=== PATIENT | male | born 1995 | race Caucasian/White ===

== ENCOUNTER 2016-08-20 19:58 | Outpatient (CLI) | payer OTHER | END 2016-08-20 19:59 | disposition critical access hospital (66) | LOC: EMS 19:58 | PROVIDERS: ATTEND Surgery | DX: M54.9 Dorsalgia, unspecified (principal); S09.90XA Unspecified injury of head, initial encounter; R07.9 Chest pain, unspecified; M25.511 Pain in right shoulder; R41.82 Altered mental status, unspecified; V47.5XXA Car driver injured in collision with fixed or stationary object in traffic accident, initial encounter; Y92.414 Local residential or business street as the place of occurrence of the external cause | CPT/HCPCS: A0425; A0427 ==

== ENCOUNTER 2016-08-20 20:07 | Emergency (ER) | payer OTHER ==
[2016-08-20] MEDS ORDERED: MORPHINE 2 MG/ML SYRINGE ONE (20:16)
[2016-08-20] MEDS ORDERED: MORPHINE 2 MG/ML SYRINGE IVP STA (20:22)
[2016-08-20] MEDS ORDERED: SODIUM CHLORIDE 0.9% 1,000 ML IV STA (20:22)
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
[2016-08-20] MEDS ORDERED: HYDROmorphone 1 MG/ML SYRINGE ONE ×5 (20:36→22:15)
[2016-08-20] MEDS ORDERED: HYDROmorphone 1 MG/ML SYRINGE IVP STA ×5 (20:38→22:15)
[2016-08-20 20:44] LABS: BASOPHILS # (AUTO) 0.1 10^3/uL (0.0-0.1); BASOPHILS % (AUTO) 0.8 %; EOSINOPHILS # (AUTO) 0.2 10^3/uL (0.0-0.7); EOSINOPHILS % (AUTO) 1.5 %; HCT - HEMATOCRIT 46.7 % (42.0-52.0); HGB - HEMOGLOBIN 15.9 g/dL (14.0-18.0); LYMPHOCYTES # (AUTO) 5.8 10^3/uL (1.5-3.5); LYMPHOCYTES % (AUTO) 41.5 %; MEAN CORPUSCULAR HEMOGLOBIN 30.4 pg (27.0-31.0); MEAN CORPUSCULAR VOLUME 89.5 fL (80.0-94.0); MEAN PLATELET VOLUME 9.1 fL (7.4-11.4); MONOCYTES # (AUTO) 0.5 10^3/uL (0.0-1.0); MONOCYTES % (AUTO) 3.8 %; NEUTROPHILS # (AUTO) 7.3 10^3/uL (1.5-6.6); NEUTROPHILS % (AUTO) 52.4 %; RED BLOOD COUNT 5.22 10^6/uL (4.70-6.10); RED CELL DISTRIBUTION WIDTH 12.9 % (12.0-15.0); UNCORRECTED WHITE BLOOD COUNT 13.9 x10^3/uL; WHITE BLOOD COUNT 13.9 x10^3/uL (4.8-10.8)
[2016-08-20] MEDS ORDERED: IOPAMIDOL-300 100 ML VIAL IVP ONE (20:47)
[2016-08-20 20:52] LABS: ALBUMIN/GLOBULIN RATIO 1.8 (1.0-2.2); BILIRUBIN,TOTAL 0.6 mg/dL (0.2-1.0); CALCIUM 8.8 mg/dL (8.5-10.3); CREATININE 0.9 mg/dL (0.6-1.2); TOTAL PROTEIN 7.3 g/dL (6.7-8.2)
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
--- NOTE | 2016-08-20 21:23 | CT Preliminary Report ---
Exam: CT Cervical Spine W/O IMPRESSION: Normal cervical spine CT. [facility] SITE ID: [id number]
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
--- NOTE | 2016-08-20 21:38 | CT Preliminary Report ---
Exam: CT Abdomen/Pelvis W/ Please see CTA chest for comments about the abdomen and pelvis. SITE ID: [id number]
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
[2016-08-20 22:22] VITALS: BP 136/61
== END 2016-08-20 22:53 | disposition short-term general hospital (02) ==
LOC: EDUNIT# → ED 20:07
DX: S27.0XXA Traumatic pneumothorax, initial encounter (principal); S22.39XA Fracture of one rib, unspecified side, initial encounter for closed fracture; S36.899A Unspecified injury of other intra-abdominal organs, initial encounter; V47.5XXA Car driver injured in collision with fixed or stationary object in traffic accident, initial encounter; Y92.488 Other paved roadways as the place of occurrence of the external cause; F17.200 Nicotine dependence, unspecified, uncomplicated
CPT/HCPCS: 36415; 70450; 71275; 72125; 74177; 80053; 80320; 83690; 85025; 86850; 86900; 86901; 96374; 96375; 96376; 99285; J1170; Q9967

== ENCOUNTER 2016-08-25 10:57 | Emergency (ER) | payer OTHER ==
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
[2016-08-25] MEDS ORDERED: ONDANSETRON ODT 4 MG TABLET ONE (13:32)
[2016-08-25] MEDS ORDERED: MAGNESIUM CITRATE 296 ML BOTTLE ONE (13:32)
[2016-08-25] MEDS: MAGNESIUM CITRATE 296 ML BOTTLE PO STA (13:44)
[2016-08-25] MEDS: ONDANSETRON ODT 4 MG TABLET TL STA (13:44)
[2016-08-25] MEDS: MINERAL OIL ENEMA 133 ML BOTTLE RC STA (13:44)
--- NOTE | 2016-08-25 15:11 | XRAY Preliminary Report ---
Exam: XR Abdomen 2 View IMPRESSION: 1. No evidence of dilated small bowel. No intraperitoneal free air. 2. There is mild gaseous distention of colon. There is moderate stool within right colon. Findings co uld represent mild ileus. [facility] SITE ID: [id number]
--- NOTE | 2016-08-25 15:17 | XRAY Report ---
EXAM: ABDOMEN RADIOGRAPHY EXAM DATE: 08/25/2016 02:55 PM. CLINICAL HISTORY: Abdominal pain COMPARISON: None. TECHNIQUE: 2 views. FINDINGS: Lung Bases: Unremarkable. Bowel Gas Pattern: There is gaseous distention of the left and sigmoid colon. There is moderate stool within right colon. No dilated small bowel is seen. Free Air: None. Other: Surgical rakel are in place at midline. IMPRESSION: 1. No evidence of dilated small bowel. No intraperitoneal free air. 2. There is mild gaseous distention of colon. There is moderate stool within right colon. Findings co uld represent mild ileus. [facility] Referring Provider Line: [phone] SITE ID: [id number]
[2016-08-25 15:41] VITALS: BP 152/101
== END 2016-08-25 15:40 | disposition home or self-care (01) ==
LOC: ED 10:57
DX: K91.3 Postprocedural intestinal obstruction (principal); R10.84 Generalized abdominal pain; F17.200 Nicotine dependence, unspecified, uncomplicated
CPT/HCPCS: 74020; 99283

== ENCOUNTER 2019-04-23 13:30 | Outpatient (CLI) | payer OTHER ==
[2019-04-23 14:03] LABS: BASOPHILS % (AUTO) 0.7 %; EOSINOPHILS # (AUTO) 0.2 10^3/uL (0.0-0.7); EOSINOPHILS % (AUTO) 3.6 %; HGB - HEMOGLOBIN 17.8 g/dL (14.0-18.0); LYMPHOCYTES # (AUTO) 2.1 10^3/uL (1.5-3.5); LYMPHOCYTES % (AUTO) 36.1 %; MEAN CORPUSCULAR HEMOGLOBIN 31.8 pg (27.0-31.0); MEAN CORPUSCULAR HGB CONC 35.6 g/dL (32.0-36.0); MEAN CORPUSCULAR VOLUME 89.3 fL (80.0-94.0); MEAN PLATELET VOLUME 9.5 fL (7.4-11.4); MONOCYTES # (AUTO) 0.5 10^3/uL (0.0-1.0); MONOCYTES % (AUTO) 8.7 %; NEUTROPHILS % (AUTO) 50.7 %; PLT - PLATELET COUNT 224 10^3/uL (130-450); RED CELL DISTRIBUTION WIDTH 11.9 % (12.0-15.0); WHITE BLOOD COUNT 5.8 x10^3/uL (4.8-10.8)
[2019-04-23 14:40] LABS: ALBUMIN 4.6 g/dL (3.2-5.5); ALBUMIN/GLOBULIN RATIO 1.5 (1.0-2.2); ALKALINE PHOSPHATASE 59 IU/L (42-121); ALT ALANINE AMINOTRANSFERASE 59 IU/L (10-60); AST ASPARTATE AMINOTRANSFERASE 39 IU/L (10-42); BILIRUBIN,TOTAL 1.2 mg/dL (0.2-1.0); BUN - BLOOD UREA NITROGEN 14 mg/dL (6-20); CALCIUM 9.6 mg/dL (8.5-10.3); CARBON DIOXIDE - CO2 26 mmol/L (21-32); CHLORIDE 102 mmol/L (101-111); CHOL/HDL RATIO 4.7 (<5.0); CHOLESTEROL 250 mg/dL; CREATININE 0.9 mg/dL (0.6-1.2); GFR - MDRD 103 (>89); GLUCOSE 100 mg/dL (70-100); HDL CHOLESTEROL 53 mg/dL; LDL CHOLESTEROL,CALCULATED 183 mg/dL; LDL/HDL RATIO 3.5 (<3.6); SODIUM 137 mmol/L (135-145); TOTAL PROTEIN 7.6 g/dL (6.7-8.2); VLDL CHOLESTEROL 14 mg/dL
== END 2019-04-23 13:31 | disposition home or self-care (01) ==
LOC: LAB 13:30
PROVIDERS: ATTEND Family Medicine
DX: Z00.00 Encounter for general adult medical examination without abnormal findings (principal)
CPT/HCPCS: 36415; 80053; 80061; 83721; 84443; 85025; 86850; 86900; 86901; 87086

== ENCOUNTER 2022-02-12 14:46 | Emergency (ER) | payer MEDICAID, OTHER ==
[2022-02-12 15:16] VITALS: BP 130/80
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
== END 2022-02-12 17:28 | disposition left against medical advice (07) ==
LOC: ED 14:46
DX: Z53.21 Procedure and treatment not carried out due to patient leaving prior to being seen by health care provider (principal)